=== PATIENT | male | born 1960 | race Caucasian/White ===

== ENCOUNTER 2017-01-07 13:43 | Inpatient (IN) | payer OTHER ==
--- NOTE | 2017-01-07 13:47 | EDPHY ---
HPI/HX/ROS/PE/MDM Narrative: CHIEF COMPLAINT: Shaking HISTORY OF PRESENT ILLNESS: 56 y/o male arriving with his family complaining of uncontrollable shaking onset around 6am this morning. He woke at 2:00am feeling very dizzy, as if the room was flying around. Four hours later, he began shaking. He was clammy and felt hot and cold. He did not fall or lose consciousness at any point. He endorses trouble seeing, and states things seem blurry and very bright. His toes are currently tingling. He denies headache, chest pain, abdominal pain. He is currently visiting from [place], [place] and arrived around 4:30pm yesterday afternoon. He states he had similar symptoms before when visiting [place] in September,. He denies history of alcohol withdrawal seizures or personal or family history of other seizure disorders. He endorses recent thyroid diagnosis, which sounds like hyperthyroidism, treated with an unknown medication. Family reports after starting the new medication he did well initially however has began to lose weight and developed easy bruising and mood disturbances with sudden severe anger. He visited his primary care physician last week for evaluation and had normal blood work at that time aside from slight hypothyroidism. No chest pain, shortness of breath, palpitations, vomiting, diarrhea, urinary complaints, headache, lightheadedness. Patient denies illicit drug use. He reports going out to dinner and having alcohol last night. REVIEW OF SYSTEMS: Aside from elements discussed in the HPI, a comprehensive 10-point review of systems was reviewed and is negative. PAST MEDICAL HISTORY: Hyperthyroid. Family history of cardiac disease. SOCIAL HISTORY: Visiting from [place], [place]. Family at bedside. Son attends [employer] [employer]. Nonsmoker. No marijuana use. Occasional alcohol use. VITAL SIGNS: Reviewed by me. BP 226/147. HR 137. Afebrile. GENERAL: Well-developed, well-nourished, uncontrollably violently tremorous including tongue. HEENT: Atraumatic. Eyes: No icterus, no injection. pupils normal size. Mouth: dry mucous membranes. No erythema or lesions. Neck: supple with no adenopathy. LUNGS: Clear to auscultation bilaterally, no wheezes, rhonchi or rales. CARDIAC: Tachycardic, no rubs, murmurs or gallops. ABDOMEN: Soft, nontender, nondistended, bowel sounds normal. BACK: No CVA tenderness. EXTREMITIES: No trauma. No edema. Range of motion is normal throughout. Moving all extremities. No lead pipe rigidity. No stiffness. NEURO: Alert and oriented, grossly nonfocal. SKIN: Warm and dry, no rash. Ecchymosis to lower extremities. Large ecchymosis on the right forearm. PSYCHIATRIC: Normal mentation, no agitation. Portions of this note were transcribed by a medical coding auditor. I personally performed a history, physical exam, medical decision making, and confirmed accuracy of information the transcribed note. ED Course: 12-LEAD EKG: Please see the full report in [facility]. My interpretation: Sinus tachycardia, rate 101. LVH, prolonged QT. 13:41 Assessed patient on arrival. IV was established. Patient's i-STAT demonstrates largely unremarkable electrolytes. Patient's blood pressure remains significantly elevated and patient is quite tachycardic. He received 2 mg of Ativan. On reassessment at 2:20 9.m., the patient's blood pressure has diminished to 172 /112, heart rate has come down to 105. Labs as reported that the patient's platelets are 20. Lactic acid elevated at 7.4. Of note, patient also has elevated liver function tests. Discussion held with the patient without family in the room. Patient admits to drinking quite heavily daily, and drinking during the day when he is at work. He reports his family is not aware of his heavy alcohol use. He reports developing tremors previously but not to this degree. 14:53 Spoke with hospitalist service. Dr. Awad accepts admission to stepdown. Given the patient's elevated lactic acid, low platelets, elevated liver function tests, this could be related to chronic alcohol abuse and alcohol withdrawal. However, sepsis is also in the differential. Severe Sepsis/Septic Shock Care Note The patient presents to the ED with uncontrolled tremors, tachycardic, hypertensive, and elevated lactic acid. Patient's lactic acid is 7.4. At the current time I do not believe that occult infection or sepsis is a primary cause for the patient's significant lactic acidosis. He has no white count, no documented fever, no complaints suggestive of urinary tract infection or pneumonia. 30 cc/kilos bolus of fluid was administered and repeat lactic acid was ordered. At this time antibiotics were not hung. Patient was admitted to the Hospital Medicine Service with a working diagnosis of significant alcohol withdrawal. MDM: Differential diagnoses for the patient's symptom complex was considered including but not limited to seizures, withdrawal syndrome, alcohol withdrawal, riders from sepsis, hyperthyroidism. - Data Points Laboratory Results: Laboratory Results 01/07/17 13:45 01/07/17 13:45 01/07/17 01/07/17 01/07/17 14:20 14:20 13:45 WBC RBC Hgb POC Hgb Hct POC Hct MCV MCH MCHC RDW Plt Count MPV Neut % (Auto) Lymph % (Auto) [place] % (Auto) Eos % (Auto) Baso % (Auto) Nucleat RBC Rel Count Absolute Neuts (auto) Absolute Lymphs (auto) Absolute Monos (auto) Absolute Eos (auto) Absolute Basos (auto) Absolute Nucleated RBC Immature Gran % Immature Gran # Platelet Estimate Smear Review By PT 13.6 SEC SEC (12.0-15.0) INR 1.05 (0.83-1.16) APTT 26.0 SEC SEC (23.0-38.0) VBG Lactic Acid 7.4 mmol/L H mmol/L (0.7-2.1) POC Sodium Sodium POC Potassium Potassium POC Chloride Chloride Carbon Dioxide Anion Gap POC BUN BUN Creatinine POC Creatinine Estimated GFR Glucose POC Glucose Calcium Total Bilirubin Conjugated Bilirubin Unconjugated Bilirubin AST ALT Alkaline Phosphatase Creatine Kinase Troponin I Total Protein Albumin Lipase TSH Free T4 Free T3 Urine Color Pending Urine Appearance Pending Urine pH Pending Ur Specific [place] Pending Urine Protein Pending Urine Ketones Pending Urine Blood Pending Urine Nitrate Pending Urine Bilirubin Pending Urine Urobilinogen Pending Ur Leukocyte Esterase Pending Urine RBC Pending Urine WBC Pending Ur Epithelial Cells Pending Urine Glucose Pending Urine Opiates Screen Pending Urine Barbiturates Pending Ur Phencyclidine Scrn Pending Ur Amphetamine Screen Pending U Benzodiazepines Scrn Pending Urine Cocaine Screen Pending U Marijuana (THC) Screen Pending Ethyl Alcohol 01/07/17 01/07/17 01/07/17 13:45 13:45 13:39 WBC 4.12 10^3/uL 10^3/uL (3.80-9.50) RBC 4.66 10^6/uL 10^6/uL (4.40-6.38) Hgb 15.9 g/dL g/dL (13.7-17.5) POC Hgb 17.3 gm/dL gm/dL (13.7-17.5) Hct 45.6 % % (40.0-51.0) POC Hct 51 % % (40-51) MCV 97.9 fL fL (81.5-99.8) MCH 34.1 pg pg (27.9-34.1) MCHC 34.9 g/dL g/dL (32.4-36.7) RDW 12.3 % % (11.5-15.2) Plt Count 20 10^3/uL L* 10^3/uL (150-400) MPV 11.3 fL fL (8.7-11.7) Neut % (Auto) 63.8 % % (39.3-74.2) Lymph % (Auto) 22.1 % % (15.0-45.0) [place] % (Auto) 12.4 % % (4.5-13.0) Eos % (Auto) 0.0 % L % (0.6-7.6) Baso % (Auto) 0.2 % L % (0.3-1.7) Nucleat RBC Rel Count 0.0 % % (0.0-0.2) Absolute Neuts (auto) 2.63 10^3/uL 10^3/uL (1.70-6.50) Absolute Lymphs (auto) 0.91 10^3/uL L 10^3/uL (1.00-3.00) Absolute Monos (auto) 0.51 10^3/uL 10^3/uL (0.30-0.80) Absolute Eos (auto) 0.00 10^3/uL L 10^3/uL (0.03-0.40) Absolute Basos (auto) 0.01 10^3/uL L 10^3/uL (0.02-0.10) Absolute Nucleated RBC 0.00 10^3/uL 10^3/uL (0-0.01) Immature Gran % 1.5 % H % (0.0-1.1) Immature Gran # 0.06 10^3/uL 10^3/uL (0.00-0.10) Platelet Estimate DECREASED L (ADEQ) Smear Review By Pending PT INR APTT VBG Lactic Acid POC Sodium 142 mEq/L mEq/L (134-144) Sodium 141 mEq/L mEq/L (134-144) POC Potassium 3.3 mEq/L mEq/L (3.3-5.0) Potassium 3.3 mEq/L L mEq/L (3.5-5.2) POC Chloride 101 mEq/L mEq/L (97-110) Chloride 98 mEq/L mEq/L (97-110) Carbon Dioxide 14 mEq/l L mEq/l (22-31) Anion Gap 29 mEq/L H mEq/L (8-16) POC BUN 5 mg/dL L mg/dL (7-23) BUN 7 mg/dL mg/dL (7-23) Creatinine 0.6 mg/dL L mg/dL (0.7-1.3) POC Creatinine 0.5 mg/dL L mg/dL (0.7-1.3) Estimated GFR > 60 Glucose 169 mg/dL H mg/dL (70-100) POC Glucose 164 mg/dL H mg/dL (70-100) Calcium 10.1 mg/dL mg/dL (8.5-10.4) Total Bilirubin 2.3 mg/dL H mg/dL (0.1-1.4) Conjugated Bilirubin 1.1 mg/dL H mg/dL (0.0-0.5) Unconjugated Bilirubin 1.2 mg/dL H mg/dL (0.0-1.1) AST 199 IU/L H IU/L (17-59) ALT 137 IU/L H IU/L (21-72) Alkaline Phosphatase 120 IU/L IU/L (38-126) Creatine Kinase 185 IU/L IU/L (0-224) Troponin I < 0.012 ng/mL ng/mL (0.000-0.034) Total Protein 10.4 g/dL H g/dL (6.3-8.2) Albumin 5.3 g/dL H g/dL (3.5-5.0) Lipase 353 IU/L H IU/L (23-300) TSH 2.080 uIU/mL uIU/mL (0.465-4.680) Free T4 0.96 ng/dL ng/dL (0.59-2.19) Free T3 4.19 pg/mL pg/mL (2.77-5.27) Urine Color Urine Appearance Urine pH Ur Specific [place] Urine Protein Urine Ketones Urine Blood Urine Nitrate Urine Bilirubin Urine Urobilinogen Ur Leukocyte Esterase Urine RBC Urine WBC Ur Epithelial Cells Urine Glucose Urine Opiates Screen Urine Barbiturates Ur Phencyclidine Scrn Ur Amphetamine Screen U Benzodiazepines Scrn Urine Cocaine Screen U Marijuana (THC) Screen Ethyl Alcohol 13 mg/dL H mg/dL (0-10) Medications Given: Discontinued Medications Chlordiazepoxide HCl (Librium) 25 mg PO EDNOW ONE Stop: 01/07/17 14:58 Last Admin: 01/07/17 15:15 Dose: 25 mg Sodium Chloride (Ns) 1,000 mls @ 0 mls/hr IV ONCE ONE; Wide Open PRN Reason: Protocol Stop: 01/07/17 14:00 Last Admin: 01/07/17 14:00 Dose: 1,000 mls Sodium Chloride (Ns) 2,200 mls @ 4,400 mls/hr 30 ml/kg infuse over 30 min ( 2200 ml) IV EDNOW ONE PRN Reason: Protocol Stop: 01/07/17 15:26 Last Admin: 01/07/17 15:15 Dose: 2,200 mls Lorazepam (Ativan Injection) 2 mg IVP EDNOW ONE Stop: 01/07/17 14:00 Last Admin: 01/07/17 14:00 Dose: 2 mg Point of Care Test Results: 01/07/17 13:39 POC Sodium 142 POC Potassium 3.3 POC Chloride 101 POC BUN 5 L POC Creatinine 0.5 L POC Glucose 164 H General Initial Vital Signs: Initial Vital Signs Temperature (C) 36.8 C 01/07/17 13:43 Heart Rate 145 H 01/07/17 13:43 Respiratory Rate 28 H 01/07/17 13:43 Blood Pressure 226/147 H 01/07/17 13:43 O2 Sat (%) 97 01/07/17 13:43 O2 Delivery Mode Room Air Allergies/Adverse Reactions: meperidine [From Demerol] Allergy (Verified 01/07/17 13:53) Home Medications: Medication Instructions Recorded Amlodipine Besylate/Benazepril 1 each PO DAILY 01/07/17 [Amlodipine-Benazepril 5-10 mg] Levothyroxine [Synthroid 25 mcg 25 mcg PO DAILY06 01/07/17 (*)] Departure - Departure Disposition: [facility] Acute Clinical Impression: Lactic acidosis, Tremors of nervous system Withdrawal syndrome Qualifiers: Substance type: other psychoactive substance Qualified Code(s): F19.939 - Other psychoactive substance use, unspecified with withdrawal, unspecified Condition: Fair Report Scribed for: Rula Sanders Report Scribed by: Yue Sauceda Date of Report: 01/07/17 Time of Report: 13:53
[2017-01-07] MEDS ORDERED: LORazepam 2 MG/ML INJ ONE ×2 (13:48→16:40)
[2017-01-07] MEDS ORDERED: LORazepam 2 MG/ML INJ IVP ONE (13:59)
[2017-01-07] MEDS ORDERED: NS 1,000 ML IV ONE (13:59)
[2017-01-07 14:11] LABS: % IMMATURE GRANULYOCYTES 1.5 % (0.0-1.1); ABSOLUTE IMMATURE GRANULOCYTES 0.06 10^3/uL (0.00-0.10); ADD DIFF? NO; ADD MORPH? NO; ADD SCAN? NO; ATYPICAL LYMPHOCYTE FLAG 0 (0-99); FRAGMENT RBC FLAG 0 (0-99); HEMATOCRIT 45.6 % (40.0-51.0); HEMOGLOBIN 15.9 g/dL (13.7-17.5); LEFT SHIFT FLG 10 (0-99); LIPEMIA HEMOLYSIS FLAG 90 (0-99); MEAN CELL HEMOGLOBIN 34.1 pg (27.9-34.1); MEAN CELL HEMOGLOBIN CONCENTR. 34.9 g/dL (32.4-36.7); MEAN CELL VOLUME 97.9 fL (81.5-99.8); MEAN PLATELET VOLUME 11.3 fL (8.7-11.7); PLATELET CLUMPS FLAG 0 (0-99); RED BLOOD CELL COUNT 4.66 10^6/uL (4.40-6.38); RED CELL DISTRIBUTION WIDTH 12.3 % (11.5-15.2)
[2017-01-07 14:16] LABS: ALANINE AMINOTRANSFERASE 137 IU/L (21-72); ALBUMIN 5.3 g/dL (3.5-5.0); ALKALINE PHOSPHATASE 120 IU/L (38-126); ANION GAP 29 mEq/L (8-16); ASPARTATE AMINOTRANSFERASE 199 IU/L (17-59); BILIRUBIN,TOTAL 2.3 mg/dL (0.1-1.4); BILIRUBIN-CONJUGATED 1.1 mg/dL (0.0-0.5); BILIRUBIN-UNCONJUGATED 1.2 mg/dL (0.0-1.1); CALCIUM 10.1 mg/dL (8.5-10.4); CARBON DIOXIDE 14 mEq/l (22-31); CHLORIDE 98 mEq/L (97-110); CREATININE 0.6 mg/dL (0.7-1.3); GLOMERULAR FILTRATION RATE > 60; GLUCOSE 169 mg/dL (70-100); PLATELET COUNT 20 10^3/uL (150-400); POTASSIUM 3.3 mEq/L (3.5-5.2); SODIUM 141 mEq/L (134-144); TOTAL PROTEIN 10.4 g/dL (6.3-8.2)
--- NOTE | 2017-01-07 14:25 | CPEKG ---
Heart Rate: 101 RR Interval: 594 P-R Interval: 184 QRSD Interval: 102 QT Interval: 388 QTC Interval: 503 P [place]: 47 QRS [place]: 41 T Wave [place]: 15 EKG Severity - ABNORMAL ECG - EKG Impression: SINUS TACHYCARDIA EKG Impression: LEFT VENTRICULAR HYPERTROPHY EKG Impression: PROLONGED QT INTERVAL Electronically Signed By: Rula Sanders 07-Jan-2017 15:42:58
[2017-01-07 14:32] LABS: TROPONIN I < 0.012 ng/mL (0.000-0.034)
[2017-01-07] MEDS ORDERED: chlordiazePOXIDE 25 MG CAP PO ONE (14:57)
[2017-01-07] MEDS ORDERED: NS 2,200 ML IV ONE (14:57)
[2017-01-07 15:06] LABS: ETHANOL SERUM 13 mg/dL (0-10)
[2017-01-07 15:08] LABS: INR 1.05 (0.83-1.16); PROTIME(PATIENT) 13.6 SEC (12.0-15.0)
[2017-01-07 15:09] LABS: PLATELET ESTIMATE DECREASED (ADEQ)
[2017-01-07] MEDS ORDERED: ONDANSETRON 4 MG/2 ML VIAL ONE (16:15)
[2017-01-07] MEDS ORDERED: ONDANSETRON 4 MG/2 ML VIAL IVP ONE (16:18)
[2017-01-07 16:36] LABS: COLOR YELLOW; LEUKOCYTE ESTERASE,URINE NEGATIVE (NEGATIVE); NITRITE,URINE NEGATIVE (NEGATIVE)
[2017-01-07 16:40] LABS: MUCUS TRACE /lpf (NONE-1+)
[2017-01-07] MEDS ORDERED: PROTOCOL POTASSIUM 1 DOSE MISC PRN (16:54)
[2017-01-07] MEDS ORDERED: PROMETHAZINE HCL 25 MG/ML INJ IVP PRN (16:55)
[2017-01-07] MEDS ORDERED: HYDROmorphONE/DILAUDID 1 MG/ML INJ IVP PRN (16:55)
[2017-01-07] MEDS ORDERED: ONDANSETRON 4 MG/2 ML VIAL IVP PRN (16:55)
[2017-01-07] MEDS ORDERED: ACETAMINOPHEN 500 MG TAB PO PRN (16:55)
[2017-01-07] MEDS: LORazepam 2 MG/ML INJ IVP PRN ×3 (17:32→22:05)
--- NOTE | 2017-01-07 17:46 | GHP ---
[f rep st] HISTORY AND PHYSICAL DATE OF ADMISSION: 01/07/2017 CHIEF COMPLAINT: Tremor. HISTORY: The patient is a 56-year-old male visiting [place] from [place], [place], for Parents' Weekend as his son is attending . He flew here with his family yesterday and then at 2 a.m. this morning woke up with severe dizziness and nausea. For the next couple hours this progressed to a severe trem or with profuse nausea and vomiting. It has now been revealed and he has admitted to surreptitious a lcohol use, drinking heavily 1 pint of whiskey per day, starting at noon at work and sneaking alcohol at home, and his family is completely unaware. Since he is currently traveling with his family, he has not been drinking his usual quantities, and per his , had 4 alcoholic beverages yesterday. He has had a 30-pound unintentional weight loss and noticed easy bruising. He has had increased nose bleeds. He has been dizzy for the last 6 months. He saw his primary care doctor very recently at [facility], and the patient tells me his primary care doctor told him his liver tests were abnormal and his p latelets were low, and his primary care doctor is aware of his alcoholism. He went home, however, an d told his that the labs were all normal. He had a similar episode when they went to a wedding in [place] at the end of September, however, was not as severe and he just was seen in urgent care and relea sed. They were told platelets were low at that time as well. Over the last 2 weeks, he has had a miles dden mood change and he is angry all the time according to his . PAST MEDICAL HISTORY: 1. Hypertension. 2. Hypothyroidism. MEDICATIONS: Please see computer record for full detailed list. ALLERGIES: Meperidine. SOCIAL HISTORY: He does not smoke cigarettes but he dips. Per his 's history, he only drinks a couple drinks on Monday and Monday night, but when his family was not present, the patient admitted to daily drinking of a pint of whiskey starting at noon. REVIEW OF SYSTEMS: Complete review of systems obtained. Review of systems is negative regarding con stitutional, HEENT, GI, pulmonary, cardiovascular, , hematology, skin, muscular, endocrine, psychia tric, except for positives and negatives as noted in the HPI. FAMILY HISTORY: Reviewed; noncontributory to presenting complaint. PHYSICAL EXAMINATION: GENERAL: Well-developed, well-nourished male, in no acute distress. VITAL SI GNS: Temperature is 36.8, pulse 145, respirations 28, blood pressure 226/147, saturating 97% on room air. HEENT: Eyes: Normal conjunctivae. Pupils equal and reactive to light. ENT: Normal ears an d nose. Hearing intact. Normal teeth. Oropharynx moist. NECK: Trachea midline. No thyromegaly. CHEST: Normal respiratory effort. LUNGS: Clear to auscultation bilaterally. CARDIOVASCULAR: Tac hycardic. No murmur. No lower extremity edema. ABDOMEN: Soft, nontender. Possible hepatosplenome arti. SKIN: Warm, dry, intact, without rash. MUSCULOSKELETAL: No cyanosis or clubbing. Strength 5/5 in upper and lower extremities. NEUROLOGIC: Cranial nerves intact. Normal sensation to light t ouch. He does have a significant tremor. PSYCHIATRIC: He is agitated but alert and oriented, able to give a history. Looks very uncomfortable. Normal judgment and insight. Normal memory. LABORATORY DATA: White count 4.12, hematocrit 45.6, platelets 20. Sodium 141, potassium 3.3, chlori de 98, bicarb 14, anion gap 29, BUN 7, creatinine 0.6, glucose 169. TSH is 2.0. Total bilirubin 2.3 , AST 199, ALT 137, total protein 10.4. Troponins negative. Lactate initially 7.4, has come down al ready to 2.2 after hydration in the emergency room. EKG reviewed by me and my personal interpretation: Sinus tachycardia with LVH. This case was discus sed with Dr. Rula Sanders. She was able to speak with the patient initially without family in the ro om and get this history regarding his surreptitious alcohol use. ASSESSMENT/PLAN: 1. Severe alcohol withdrawal. He has surreptitious alcohol use that his family is not aware of with an acute reduction in use due to recent travel with them. He is now being admitted to ICU. We will place him on benzodiazepines and he may need a Precedex drip. We will administer IV thiamine. 2. Increased liver function tests. This is also likely secondary to his alcohol use. We will check an abdominal ultrasound. 3. Thrombocytopenia, also due to alcohol. Could receive a platelet transfusion if there are any sig ns of bleeding. 4. Headache and dizziness. Given his very low platelets, we will check a head CT to rule out bleed. 5. Anion gap acidosis. Anion gap 29 on presentation, probably due to his extreme lactate elevation; that has improved with IV fluids. I do not think he is septic; I think this is due to a combination of hypovolemia and liver dysfunction from his alcoholism. 6. Hypertension. He does have baseline essential hypertension. It is probably worsened by his acut e withdrawal. We will continue his home oral medications, which are amlodipine and benazepril, and u se p.r.n. IV hydralazine as needed. CODE STATUS: Full. ADMISSION STATUS: Will admit to inpatient as he is critically ill on presentation. CRITICAL CARE TIME SPENT: One hour. DEEP VENOUS THROMBOSIS PROPHYLAXIS: He is not a candidate for Lovenox due to his thrombocytopenia. /[id number]/MODL
[2017-01-07 17:47] LABS: POTASSIUM 3.5 mEq/L (3.5-5.2)
--- NOTE | 2017-01-07 18:26 | PDMN ---
Medical Necessity Medical necessity: C/M review: Pt. meets INPT criteria per [facility] Substance related disorders; Acute and persistent severe alcohol withdrawal, significant tremor, sinus tachycardia, heart rate 145-105, agitation, elevated liver function tests, total bilirubin 2.3, AST 199, ALT 137, lipase 353, thrombocytopenia. platelet count 20, ETOH level 13, anion gap acidosis, VBG lactic acid 7.4, 2.2, requiring IV Thiamine, ongoing IV fluids, IV Ativan, IV Precedex infusion if needed, CIWA protocol, acute inpt ST in SDU, comorbid surreptitious alcohol use that patient's family is not aware of with acute reduction in use, hypertension, hypothyroidism; anticipate > 2 MN LOS for ongoing medical necessity for eval and [place] of above.
[2017-01-07] MEDS ORDERED: POTASSIUM CL 10 MEQ TAB PO ONE (19:14)
[2017-01-07] MEDS: chlordiazePOXIDE 25 MG CAP PO PRN (19:54)
[2017-01-07] MEDS: hydrALAZINE 20 MG/ML VIAL IVP PRN (20:03)
[2017-01-08] MEDS: LABETALOL HCL 5 MG/ML 20 ML MDV IVP PRN ×2 (00:39→06:01)
[2017-01-08] MEDS: LORazepam 2 MG/ML INJ IVP PRN ×10 (01:24→23:11)
[2017-01-08] MEDS: chlordiazePOXIDE 25 MG CAP PO PRN ×5 (01:24→21:43)
[2017-01-08] MEDS: NS W/ 20 KCl/L 1,000 ML IV SCH ×2 (01:24→10:12)
[2017-01-08] MEDS: LEVOTHYROXINE 25 MCG TAB PO SCH (05:58)
[2017-01-08 06:06] LABS: % IMMATURE GRANULYOCYTES 0.4 % (0.0-1.1); ABSOLUTE IMMATURE GRANULOCYTES 0.02 10^3/uL (0.00-0.10); ADD DIFF? NO; ADD MORPH? NO; ADD SCAN? NO; ATYPICAL LYMPHOCYTE FLAG 10 (0-99); FRAGMENT RBC FLAG 0 (0-99); HEMATOCRIT 38.7 % (40.0-51.0); HEMOGLOBIN 13.9 g/dL (13.7-17.5); LEFT SHIFT FLG 10 (0-99); LIPEMIA HEMOLYSIS FLAG 90 (0-99); MEAN CELL HEMOGLOBIN 34.5 pg (27.9-34.1); MEAN CELL HEMOGLOBIN CONCENTR. 35.9 g/dL (32.4-36.7); MEAN PLATELET VOLUME 10.5 fL (8.7-11.7); PLATELET CLUMPS FLAG 0 (0-99); RED BLOOD CELL COUNT 4.03 10^6/uL (4.40-6.38); RED CELL DISTRIBUTION WIDTH 12.4 % (11.5-15.2)
[2017-01-08 06:13] LABS: INR 1.08 (0.83-1.16); PROTIME(PATIENT) 13.9 SEC (12.0-15.0)
[2017-01-08 06:15] LABS: PLATELET COUNT 14 10^3/uL (150-400)
[2017-01-08 06:20] LABS: ALANINE AMINOTRANSFERASE 97 IU/L (21-72); ALBUMIN 4.1 g/dL (3.5-5.0); ALKALINE PHOSPHATASE 80 IU/L (38-126); ANION GAP 11 mEq/L (8-16); ASPARTATE AMINOTRANSFERASE 122 IU/L (17-59); BILIRUBIN,TOTAL 2.4 mg/dL (0.1-1.4); BILIRUBIN-CONJUGATED 1.2 mg/dL (0.0-0.5); BILIRUBIN-UNCONJUGATED 1.2 mg/dL (0.0-1.1); CARBON DIOXIDE 23 mEq/l (22-31); CHLORIDE 100 mEq/L (97-110); CREATININE 0.6 mg/dL (0.7-1.3); GLOMERULAR FILTRATION RATE > 60; GLUCOSE 92 mg/dL (70-100); MAGNESIUM 1.1 mg/dL (1.6-2.3); POTASSIUM 3.7 mEq/L (3.5-5.2); SODIUM 134 mEq/L (134-144); TOTAL PROTEIN 8.1 g/dL (6.3-8.2)
[2017-01-08 06:39] LABS: PLATELET ESTIMATE DECREASED (ADEQ)
[2017-01-08] MEDS ORDERED: POTASSIUM CL 10 MEQ TAB PO ONE (07:29)
[2017-01-08] MEDS: AMLODIPINE BESYLATE 5/BENAZEPRIL 10MG 1 EACH CAP PO SCH (07:38)
[2017-01-08] MEDS ORDERED: MAGNESIUM SULF 2 GM/WATER 50 ML IV ONE (09:54)
--- NOTE | 2017-01-08 10:36 | HOSPPROG ---
Hospitalist Progress Note Assessment/Plan: 56 yo m w alcoholism, thrombocytopenia admitted w severe alcohol withdrawal withdrawal: severe, w tremors tachycardia and confusion continue CIWA suspect it will get worse before better thrombocytopenia: presumably 2/2 to alcohol, although cannot rule out ITP got platelets this AM follow BID no petechiae contraindication to LMWH no active bleeding htn: amlodipine keep sbp <180 w low plts prn labetalol proph: scd's hypomagnesemia: replete Subjective: case d/w dr ramirez. confused Objective: Vital Signs Temp Pulse Resp BP Pulse Ox 36.9 C 105 H 16 145/97 H 95 01/08/17 07:10 01/08/17 07:10 01/08/17 07:10 01/08/17 07:10 01/08/17 07:10 Laboratory Results 01/08/17 05:45 01/08/17 05:45 01/07/17 01/08/17 01/09/17 05:59 05:59 05:59 Intake Total 1919 Output Total 1999 Balance -81 PT 13.9 SEC (12.0-15.0) 01/08/17 05:45 INR 1.08 (0.83-1.16) 01/08/17 05:45 - Physical Exam Constitutional: no apparent distress, appears nourished Eyes: PERRL, anicteric sclera Ears, Nose, Mouth, Throat: moist mucous membranes, hearing normal Cardiovascular: regular rate and rhythym, no murmur, rub, or gallop, tachycardia Respiratory: no respiratory distress, no rales or rhonchi Gastrointestinal: normoactive bowel sounds, soft, non-tender abdomen Genitourinary: No mccall in urethra Skin: warm, normal color Musculoskeletal: full muscle strength, no muscle tenderness Neurologic: No AAOx3 Psychiatric: interacting appropriately ICD10 Worksheet Patient Problems: Problems Problem Status Onset Lactic acidosis Acute Tremors of nervous system Acute Withdrawal syndrome Acute
--- NOTE | 2017-01-08 13:14 | GCON ---
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 HISTORY OF PRESENT ILLNESS: The patient is a 56-year-old white male, with past medical history of hy pertension, hypothyroidism. He is visiting his son for parents weekend. He awakened feeling severe dizziness and nausea, this progressed to severe tremor, and nausea and vomiting. He was brought to [facility] emergency room, at that time, it was discovered that he is an alcoholic, drinking approximately 1 pint of whiskey per day, and his family was unaware. Currently, patient is somewhat sedated, resting comfortably. All history is gleaned from the medical record. PAST MEDICAL HISTORY: Hypertension, hypothyroidism. ALLERGIES: Meperidine. SOCIAL HISTORY: No history of tobacco use, but apparently excessive alcohol use, including daily dri nking of approximately a pint of whiskey, beginning at noon. FAMILY HISTORY: Noncontributory. PHYSICAL EXAM: VITAL SIGNS: Blood pressure is 145/97, pulse 105, respirations 16, temperature 36.9, oxygen saturation 95% on room air. GENERAL: He is a well-developed, well-nourished, 56-year-old, w shantel male, who is resting comfortably, in no acute distress. HEENT: Eyes are PERRLA, EOMI. Throat shows no erythema or tonsillar hypertrophy. NECK: Supple. There is no cervical adenopathy. HEART: Regular rate and rhythm without murmurs, rubs, gallops. LUNGS: Clear to auscultation. No wheeze or rhonchi. ABDOMEN: Soft, nontender. Bowel sounds present in all 4 quadrants. EXTREMITIES: Show mild tremor. LABORATORIES: White count 4.6, hemoglobin 13, hematocrit 38, platelet count 14. INR 1.08. Sodium 134, potassium 3.7, chloride 100, CO2 is 23, BUN is 7, creatinine 0.6, glucose is 92. AST is mildly elevated 122, ALT is elevated at 97. IMPRESSION: 1. Alcoholism. 2. Alcohol withdrawals. 3. Thrombocytopenia, likely secondary to alcohol. 4. Hypothyroidism. 5. Hypertension. RECOMMENDATIONS: 1. Agree with [facility] protocol. 2. Deep vein thrombosis and pulmonary embolus prophylaxis. 3. Stress ulcer prophylaxis. 4. Continue the majority of his home medications. /[id number]/MODL
[2017-01-08 16:22] LABS: PLATELET COUNT 44 10^3/uL (150-400)
[2017-01-08 16:41] LABS: PLATELET ESTIMATE DECREASED (ADEQ)
[2017-01-09] MEDS: DEXMEDETOMIDINE HCL 400 MCG in NS 100 ML IV SCH ×5 (00:08→21:19)
[2017-01-09] MEDS: THIAMINE HCL 500 MG in NS 100 ML IV SCH ×2 (02:17→07:51)
[2017-01-09] MEDS: LORazepam 2 MG/ML INJ IVP SCH ×4 (03:20→20:27)
[2017-01-09] MEDS: NS W/ 20 KCl/L 1,000 ML IV SCH ×3 (03:21→21:19)
[2017-01-09] MEDS: LEVOTHYROXINE 25 MCG TAB PO SCH (05:01)
[2017-01-09 05:18] LABS: % IMMATURE GRANULYOCYTES 0.3 % (0.0-1.1); ABSOLUTE IMMATURE GRANULOCYTES 0.01 10^3/uL (0.00-0.10); ADD DIFF? NO; ADD MORPH? NO; ADD SCAN? NO; ATYPICAL LYMPHOCYTE FLAG 30 (0-99); FRAGMENT RBC FLAG 0 (0-99); HEMATOCRIT 38.6 % (40.0-51.0); HEMOGLOBIN 13.6 g/dL (13.7-17.5); LEFT SHIFT FLG 0 (0-99); LIPEMIA HEMOLYSIS FLAG 90 (0-99); MEAN CELL HEMOGLOBIN 34.5 pg (27.9-34.1); MEAN CELL HEMOGLOBIN CONCENTR. 35.2 g/dL (32.4-36.7); MEAN PLATELET VOLUME 11.2 fL (8.7-11.7); PLATELET CLUMPS FLAG 0 (0-99); RED BLOOD CELL COUNT 3.94 10^6/uL (4.40-6.38); RED CELL DISTRIBUTION WIDTH 12.4 % (11.5-15.2)
[2017-01-09 05:22] LABS: PLATELET COUNT 33 10^3/uL (150-400)
[2017-01-09 05:43] LABS: ANION GAP 10 mEq/L (8-16); CALCIUM 9.2 mg/dL (8.5-10.4); CARBON DIOXIDE 20 mEq/l (22-31); CHLORIDE 107 mEq/L (97-110); CREATININE 0.7 mg/dL (0.7-1.3); GLOMERULAR FILTRATION RATE > 60; GLUCOSE 89 mg/dL (70-100); MAGNESIUM 1.8 mg/dL (1.6-2.3); SODIUM 137 mEq/L (134-144)
[2017-01-09 06:11] LABS: PLATELET ESTIMATE DECREASED (ADEQ)
[2017-01-09] MEDS: AMLODIPINE BESYLATE 5/BENAZEPRIL 10MG 1 EACH CAP PO SCH ×2 (07:51→08:04)
--- NOTE | 2017-01-09 09:29 | HOSPPROG ---
Hospitalist Progress Note Assessment/Plan: 56 yo m w alcoholism, thrombocytopenia admitted w severe alcohol withdrawal withdrawal: severe, w tremors tachycardia and confusion continue CIWA on precedex and scheduled ativan hope to wean precedex today thrombocytopenia: presumably 2/2 to alcohol, although cannot rule out ITP good bump w transfusion, which aagrues against ITP follow htn: amlodipine keep sbp <180 w low plts prn labetalol proph: scd's hypomagnesemia: replete Subjective: modestly agitated. started on precedex this AM. case d/w dr maher Objective: Vital Signs Temp Pulse Resp BP Pulse Ox 36.6 C 95 16 138/95 H 97 01/09/17 08:00 01/09/17 08:00 01/09/17 08:00 01/09/17 08:00 01/09/17 08:00 Laboratory Results 01/09/17 04:55 01/09/17 04:55 01/08/17 01/09/17 01/10/17 05:59 05:59 05:59 Intake Total 1919 3547.7 Output Total 1999 1250 Balance -81 2297.7 PT 13.9 SEC (12.0-15.0) 01/08/17 05:45 INR 1.08 (0.83-1.16) 01/08/17 05:45 - Physical Exam Constitutional: other (tremulous) Eyes: PERRL, anicteric sclera Ears, Nose, Mouth, Throat: moist mucous membranes, hearing normal Cardiovascular: no murmur, rub, or gallop, tachycardia, No systolic murmur Respiratory: no respiratory distress, no rales or rhonchi Gastrointestinal: normoactive bowel sounds, soft, non-tender abdomen Genitourinary: No mccall in urethra Skin: warm, other (no petechiae) Musculoskeletal: full muscle strength, no muscle tenderness Neurologic: AAOx3 ICD10 Worksheet Patient Problems: Problems Problem Status Onset Lactic acidosis Acute Tremors of nervous system Acute Withdrawal syndrome Acute
--- NOTE | 2017-01-09 11:15 | ASMTCMCOM ---
CM Note CM Note Notes: 56 year old male from [place] with his visiting son ([employer] student). Admitted for ETOH W/D, Thrombocytopenia, tremors, HTN, N/V, [place]. Has a HX of HTN, Hypothyroid, chews tobacco, has had a recent 30# wt loss. Patient in W/D. CM to follow. Date Signed: 01/09/2017 11:14 AM Electronically Signed By:Angeles Alicia LCSW
[2017-01-09] MEDS: PANTOPRAZOLE SODIUM 40 MG TAB PO SCH (12:14)
[2017-01-09] MEDS: hydrALAZINE 20 MG/ML VIAL IVP PRN (20:41)
[2017-01-09 20:44] LABS: POTASSIUM 3.8 mEq/L (3.5-5.2)
[2017-01-09] MEDS: POTASSIUM Cl (KCl) 100 ML IV SCH ×2 (21:22→23:27)
[2017-01-09] MEDS: LORazepam 2 MG/ML INJ IVP PRN ×2 (22:18→23:30)
[2017-01-10] MEDS: LORazepam 2 MG/ML INJ IVP PRN ×5 (00:15→07:27)
[2017-01-10] MEDS: DEXMEDETOMIDINE HCL 400 MCG in NS 100 ML IV SCH ×7 (00:44→23:31)
[2017-01-10] MEDS: LORazepam 2 MG/ML INJ IVP SCH ×4 (02:27→20:04)
[2017-01-10 05:45] LABS: % IMMATURE GRANULYOCYTES 0.5 % (0.0-1.1); ABSOLUTE IMMATURE GRANULOCYTES 0.02 10^3/uL (0.00-0.10); ADD DIFF? NO; ADD MORPH? NO; ADD SCAN? NO; ATYPICAL LYMPHOCYTE FLAG 0 (0-99); FRAGMENT RBC FLAG 0 (0-99); HEMATOCRIT 39.3 % (40.0-51.0); LEFT SHIFT FLG 0 (0-99); LIPEMIA HEMOLYSIS FLAG 90 (0-99); MEAN CELL HEMOGLOBIN 34.7 pg (27.9-34.1); MEAN CELL HEMOGLOBIN CONCENTR. 35.6 g/dL (32.4-36.7); MEAN CELL VOLUME 97.5 fL (81.5-99.8); MEAN PLATELET VOLUME 11.4 fL (8.7-11.7); PLATELET CLUMPS FLAG 10 (0-99); RED BLOOD CELL COUNT 4.03 10^6/uL (4.40-6.38); RED CELL DISTRIBUTION WIDTH 11.9 % (11.5-15.2)
[2017-01-10 05:46] LABS: PLATELET COUNT 37 10^3/uL (150-400)
[2017-01-10 06:13] LABS: ANION GAP 12 mEq/L (8-16); CARBON DIOXIDE 19 mEq/l (22-31); CHLORIDE 106 mEq/L (97-110); CREATININE 0.6 mg/dL (0.7-1.3); GLOMERULAR FILTRATION RATE > 60; GLUCOSE 104 mg/dL (70-100); MAGNESIUM 1.4 mg/dL (1.6-2.3); POTASSIUM 3.8 mEq/L (3.5-5.2); SODIUM 137 mEq/L (134-144)
[2017-01-10 06:37] LABS: PLATELET ESTIMATE DECREASED (ADEQ)
[2017-01-10] MEDS: PANTOPRAZOLE SODIUM 40 MG TAB PO SCH (07:26)
[2017-01-10] MEDS: AMLODIPINE BESYLATE 5/BENAZEPRIL 10MG 1 EACH CAP PO SCH (07:26)
[2017-01-10] MEDS: THIAMINE HCL 100 MG TAB PO SCH (07:26)
[2017-01-10] MEDS: LEVOTHYROXINE 25 MCG TAB PO SCH (07:27)
[2017-01-10] MEDS: LABETALOL HCL 5 MG/ML 20 ML MDV IVP PRN (08:29)
[2017-01-10] MEDS ORDERED: POTASSIUM CL 10 MEQ TAB PO ONE (09:41)
[2017-01-10] MEDS ORDERED: PROTOCOL K PHOSPHATE 1 DOSE IV PRN (10:13)
[2017-01-10] MEDS ORDERED: PROTOCOL MAGNESIUM 1 DOSE IV PRN (10:13)
[2017-01-10] MEDS ORDERED: PROTOCOL POTASSIUM 1 DOSE MISC PRN (10:13)
[2017-01-10] MEDS ORDERED: PROTOCOL CALCIUM 1 DOSE IV PRN (10:13)
[2017-01-10] MEDS ORDERED: MAGNESIUM SULF 2 GM/WATER 50 ML IV ONE (10:25)
[2017-01-10] MEDS: HALOPERIDOL LACT 5 MG/ML INJ IVP PRN ×2 (10:36→15:36)
--- NOTE | 2017-01-10 11:19 | HOSPPROG ---
Hospitalist Progress Note Assessment/Plan: 56 yo m w alcoholism, thrombocytopenia admitted w severe alcohol withdrawal withdrawal: severe, w tremors tachycardia and confusion continue CIWA on precedex and scheduled ativan probably a bit worse today than yesterday thrombocytopenia: presumably 2/2 to alcohol, although cannot rule out ITP good bump w transfusion, which argues against ITP follow daily htn: amlodipine keep sbp <180 w low plts prn labetalol proph: scd's hypomagnesemia: replete Subjective: case d/w dr maher. agitated today requiring frequent benzodiazepines Objective: Vital Signs Temp Pulse Resp BP Pulse Ox 36.5 C 106 H 20 149/97 H 97 01/10/17 08:00 01/10/17 10:00 01/10/17 10:00 01/10/17 10:00 01/10/17 10:00 Laboratory Results 01/10/17 05:25 01/10/17 05:25 01/09/17 01/10/17 01/11/17 05:59 05:59 05:59 Intake Total 3547.7 4221 Output Total 1250 4400 Balance 2297.7 -179 PT 13.9 SEC (12.0-15.0) 01/08/17 05:45 INR 1.08 (0.83-1.16) 01/08/17 05:45 - Physical Exam Constitutional: no apparent distress, other (alter, confused) Eyes: PERRL, anicteric sclera Ears, Nose, Mouth, Throat: moist mucous membranes, hearing normal Cardiovascular: regular rate and rhythym, no murmur, rub, or gallop Respiratory: no respiratory distress, no rales or rhonchi Gastrointestinal: normoactive bowel sounds, soft, non-tender abdomen Genitourinary: no bladder fullness, No mccall in urethra Skin: warm, normal color, other (no petechiae) Musculoskeletal: full muscle strength Neurologic: No AAOx3 Psychiatric: No interacting appropriately ICD10 Worksheet Patient Problems: Problems Problem Status Onset Lactic acidosis Acute Tremors of nervous system Acute Withdrawal syndrome Acute
[2017-01-10] MEDS: chlordiazePOXIDE 25 MG CAP PO PRN ×2 (11:29→14:42)
[2017-01-10] MEDS: NS W/ 20 KCl/L 1,000 ML IV SCH (12:53)
--- NOTE | 2017-01-10 13:55 | ASMTCMCOM ---
CM Note CM Note Notes: spoke with patient's regarding possible treatment needs for patient. Encouraged her to check their insurance benefits and then reseach the [place] area for either in-pt programs, intensive out-pt programs, AA meetings, etc. Patient will have to make the decision for treatment. Date Signed: 01/10/2017 01:54 PM Electronically Signed By:Angeles Alicia LCSW
--- NOTE | 2017-01-10 15:06 | PDINTPN ---
[employer] Progress Note Assessment/Plan: Assessment: EtOH withdrawal: CIWA 21 this morning, now better with Haldol and Librium. Thrombocytopenia: Still quite low but improved. Hypertension: Still with episodic HTN. Plan: Haldol added this morning for hallucinations. Will add Clonidine for HTN/ agitation. Melatonin hs. COntinue PO/IV benzos. 01/10/17 15:10 Subjective: Hallucinating/agitated this morning, now disoriented but more calm. Objective: Vital Signs Temp Pulse Resp BP Pulse Ox 36.5 C 93 18 146/95 H 96 01/10/17 11:50 01/10/17 14:00 01/10/17 14:00 01/10/17 14:00 01/10/17 14:00 Laboratory Results 01/10/17 05:25 01/10/17 05:25 01/09/17 01/10/17 01/11/17 05:59 05:59 05:59 Intake Total 3547.7 4221 Output Total 1250 4400 Balance 2297.7 -179 PT 13.9 SEC (12.0-15.0) 01/08/17 05:45 INR 1.08 (0.83-1.16) 01/08/17 05:45 Physical Exam - Physical Exam General Appearance: alert, mild distress EENT: normal ENT inspection Neck: normal inspection Respiratory: normal breath sounds, No respiratory distress Cardiac/Chest: regular rate, rhythm, No edema Abdomen: normal bowel sounds, non-tender Skin: normal color, warm/dry Extremities: normal inspection Neuro/Psych: alert, other (tremulous), No oriented x 3 ICD10 Worksheet Patient Problems: Problems Problem Status Onset Lactic acidosis Acute Tremors of nervous system Acute Withdrawal syndrome Acute
[2017-01-10] MEDS: hydrALAZINE 20 MG/ML VIAL IVP PRN (17:33)
[2017-01-10] MEDS: MELATONIN 3 MG TAB PO SCH (20:04)
[2017-01-11] MEDS: LORazepam 2 MG/ML INJ IVP PRN ×4 (02:26→21:13)
[2017-01-11] MEDS: LORazepam 2 MG/ML INJ IVP SCH ×2 (03:04→08:12)
[2017-01-11] MEDS: DEXMEDETOMIDINE HCL 400 MCG in NS 100 ML IV SCH ×2 (03:52→07:31)
[2017-01-11 05:23] LABS: IONIZED CALCIUM 1.16 MMOL/L (1.12-1.30)
[2017-01-11 05:25] LABS: HEMATOCRIT 40.1 % (40.0-51.0); HEMOGLOBIN 13.9 g/dL (13.7-17.5); LIPEMIA HEMOLYSIS FLAG 90 (0-99); MEAN CELL HEMOGLOBIN 34.4 pg (27.9-34.1); MEAN CELL HEMOGLOBIN CONCENTR. 34.7 g/dL (32.4-36.7); MEAN CELL VOLUME 99.3 fL (81.5-99.8); PLATELET CLUMPS FLAG 50 (0-99); RED BLOOD CELL COUNT 4.04 10^6/uL (4.40-6.38); RED CELL DISTRIBUTION WIDTH 12.1 % (11.5-15.2)
[2017-01-11 05:34] LABS: PLATELET COUNT 46 10^3/uL (150-400)
[2017-01-11] MEDS: LEVOTHYROXINE 25 MCG TAB PO SCH (05:37)
[2017-01-11 05:45] LABS: ALANINE AMINOTRANSFERASE 94 IU/L (21-72); ALBUMIN 3.5 g/dL (3.5-5.0); ALKALINE PHOSPHATASE 81 IU/L (38-126); ANION GAP 11 mEq/L (8-16); ASPARTATE AMINOTRANSFERASE 118 IU/L (17-59); BILIRUBIN,TOTAL 2.4 mg/dL (0.1-1.4); CALCIUM 9.3 mg/dL (8.5-10.4); CARBON DIOXIDE 20 mEq/l (22-31); CHLORIDE 106 mEq/L (97-110); CREATININE 0.7 mg/dL (0.7-1.3); GLOMERULAR FILTRATION RATE > 60; GLUCOSE 104 mg/dL (70-100); MAGNESIUM 1.7 mg/dL (1.6-2.3); POTASSIUM 4.1 mEq/L (3.5-5.2); SODIUM 137 mEq/L (134-144); TOTAL PROTEIN 7.6 g/dL (6.3-8.2)
[2017-01-11 05:51] LABS: BILIRUBIN-CONJUGATED 1.3 mg/dL (0.0-0.5); BILIRUBIN-UNCONJUGATED 1.1 mg/dL (0.0-1.1)
[2017-01-11 06:44] LABS: PLATELET ESTIMATE DECREASED (ADEQ)
[2017-01-11] MEDS: AMLODIPINE BESYLATE 5/BENAZEPRIL 10MG 1 EACH CAP PO SCH (08:11)
[2017-01-11] MEDS: PANTOPRAZOLE SODIUM 40 MG TAB PO SCH (08:12)
[2017-01-11] MEDS: THIAMINE HCL 100 MG TAB PO SCH (08:12)
[2017-01-11] MEDS ORDERED: MAGNESIUM SULF 1 GM/DEXTROSE 100 ML IV ONE (08:42)
[2017-01-11] MEDS: chlordiazePOXIDE 25 MG CAP PO PRN (09:58)
--- NOTE | 2017-01-11 10:29 | HOSPPROG ---
Hospitalist Progress Note Assessment/Plan: 56 yo m w alcoholism, thrombocytopenia admitted w severe alcohol withdrawal withdrawal: CIWA 9 this am on precedex. This was disconnected and pt up in wheelchair, seems to have turned the corner. Discussed with pulm, care team. -dc precedex -schedule librium at 50 mg TID -cont prn po/iv ativan thrombocytopenia: presumably 2/2 to alcohol, although cannot rule out ITP, good response to transfusion, plts up to 46. -cont to follow htn: amlodipine keep sbp <180 w low plts prn labetalol hypomagnesemia: replete proph: scd's dispo: transfer to med surg Subjective: Pt up in chair, still confused, but answers questions and follows commands. Denies pain. Still a bit tremulous. No CP or SOB. No fevers. Objective: Vital Signs Temp Pulse Resp BP Pulse Ox 36.4 C 79 13 149/91 H 93 01/11/17 08:00 01/11/17 08:00 01/11/17 08:00 01/11/17 08:11 01/11/17 08:00 Laboratory Results 01/11/17 05:10 01/11/17 05:10 01/10/17 01/11/17 01/12/17 05:59 05:59 05:59 Intake Total 4221 4372 Output Total 4400 1876 350 Balance -179 2496 -350 PT 13.9 SEC (12.0-15.0) 01/08/17 05:45 INR 1.08 (0.83-1.16) 01/08/17 05:45 - Physical Exam Constitutional: no apparent distress Eyes: PERRL Ears, Nose, Mouth, Throat: moist mucous membranes Cardiovascular: regular rate and rhythym Respiratory: no respiratory distress, clear to auscultation Gastrointestinal: normoactive bowel sounds, soft, non-tender abdomen Skin: warm Musculoskeletal: full muscle strength Neurologic: other (+tremor, no asterixis) Psychiatric: encephalopathic ICD10 Worksheet Patient Problems: Problems Problem Status Onset Lactic acidosis Acute Tremors of nervous system Acute Withdrawal syndrome Acute
[2017-01-11] MEDS: NICOTINE 14 MG/24 HR PATCH TD SCH (11:23)
--- NOTE | 2017-01-11 13:54 | PDINTPN ---
[employer] Progress Note Assessment/Plan: Assessment: EtOH withdrawal: CIWA <10 this morning, on scheduled benzos, Clonidine, PRN Haldol. Thrombocytopenia: Still quite low but continues to improve. Hypertension: Still with episodic HTN. Plan: Haldol added for hallucinations, but none given for almost 24 hours. Continue Clonidine for HTN/agitation. Continue benzos, change to PO, with scheduled Librium; melatonin hs. Follow platelets. Tx to M/S 01/11/17 13:55 01/11/17 13:56 Subjective: Feels better, more oriented. No hallucinations. Appetite returning. Slept better , but still somewhat restless. Objective: Vital Signs Temp Pulse Resp BP Pulse Ox 36.4 C 85 20 110/65 100 01/11/17 12:00 01/11/17 12:00 01/11/17 12:00 01/11/17 12:00 01/11/17 12:00 Laboratory Results 01/11/17 05:10 01/11/17 05:10 01/10/17 01/11/17 01/12/17 05:59 05:59 05:59 Intake Total 4221 4372 Output Total 4400 1876 350 Balance -179 2496 -350 PT 13.9 SEC (12.0-15.0) 01/08/17 05:45 INR 1.08 (0.83-1.16) 01/08/17 05:45 Physical Exam - Physical Exam General Appearance: alert, no apparent distress EENT: normal ENT inspection Neck: normal inspection Respiratory: normal breath sounds Cardiac/Chest: regular rate, rhythm, No edema Abdomen: normal bowel sounds, non-tender, soft Skin: normal color, warm/dry Extremities: other (firmness/cord around forearm IV site.) Neuro/Psych: alert, other (tremor), No oriented x 3 (x2) ICD10 Worksheet Patient Problems: Problems Problem Status Onset Lactic acidosis Acute Tremors of nervous system Acute Withdrawal syndrome Acute
[2017-01-11] MEDS ORDERED: hydrALAZINE 25 MG TAB PO PRN (14:43)
[2017-01-11] MEDS: chlordiazePOXIDE 25 MG CAP PO SCH ×2 (15:47→20:55)
[2017-01-11 18:39] LABS: POTASSIUM 3.6 mEq/L (3.5-5.2)
[2017-01-11] MEDS: MELATONIN 3 MG TAB PO SCH (21:45)
[2017-01-11] MEDS ORDERED: POTASSIUM CL 10 MEQ TAB PO ONE (21:50)
[2017-01-12 05:57] LABS: IONIZED CALCIUM 1.17 MMOL/L (1.12-1.30)
[2017-01-12] MEDS: LEVOTHYROXINE 25 MCG TAB PO SCH (06:25)
[2017-01-12 06:26] LABS: MAGNESIUM 1.7 mg/dL (1.6-2.3); POTASSIUM 3.9 mEq/L (3.5-5.2)
[2017-01-12] MEDS: LORazepam 1 MG TAB PO PRN ×3 (06:27→21:47)
[2017-01-12] MEDS ORDERED: POTASSIUM CL 10 MEQ TAB PO ONE (08:37)
[2017-01-12] MEDS ORDERED: MAGNESIUM SULF 1 GM/DEXTROSE 100 ML IV ONE (08:38)
[2017-01-12] MEDS: AMLODIPINE BESYLATE 5/BENAZEPRIL 10MG 1 EACH CAP PO SCH (08:55)
[2017-01-12] MEDS: PANTOPRAZOLE SODIUM 40 MG TAB PO SCH (08:55)
[2017-01-12] MEDS: chlordiazePOXIDE 25 MG CAP PO SCH ×3 (08:56→19:46)
[2017-01-12] MEDS: THIAMINE HCL 100 MG TAB PO SCH (08:56)
[2017-01-12] MEDS: NICOTINE 14 MG/24 HR PATCH TD SCH (09:00)
--- NOTE | 2017-01-12 13:51 | HOSPPROG ---
Hospitalist Progress Note Assessment/Plan: 56 yo m w alcoholism, thrombocytopenia admitted w severe alcohol withdrawal alcohol withdrawal: still quite tremulous and very unstable on his feet -cont scheduled librium -cont prn po/iv ativan gait instability - trial wernicke dose thiamine, cont PT/OT thrombocytopenia: presumably 2/2 to alcohol, although cannot rule out ITP, good response to transfusion, plts up to 61. -cont to follow htn: amlodipine, clonidine keep sbp <180 w low plts prn hydralazine hypomagnesemia: replete proph: scd's dispo: cont inpt, PT/OT, suspect he may need rehab Subjective: Pt still very unstable and tremulous. Up in chair. Still a bit confused. No fevers/chills. Requires walker for ambulation. Impulsive. Objective: Vital Signs Temp Pulse Resp BP Pulse Ox 36.9 C 21 L 21 H 156/117 H 99 01/12/17 07:44 01/12/17 07:44 01/12/17 07:44 01/12/17 08:55 01/12/17 07:44 Laboratory Results 01/12/17 05:49 01/12/17 05:49 01/11/17 01/12/17 01/13/17 05:59 05:59 05:59 Intake Total 4372 665 205 Output Total 1876 350 200 Balance 2496 315 5 PT 13.9 SEC (12.0-15.0) 01/08/17 05:45 INR 1.08 (0.83-1.16) 01/08/17 05:45 - Physical Exam Constitutional: no apparent distress Eyes: PERRL Ears, Nose, Mouth, Throat: moist mucous membranes Cardiovascular: regular rate and rhythym Respiratory: no respiratory distress Gastrointestinal: normoactive bowel sounds Skin: warm Musculoskeletal: full muscle strength Neurologic: AAOx3, other (+tremor, gait instability) Psychiatric: encephalopathic, poor insight, poor judgement ICD10 Worksheet Patient Problems: Problems Problem Status Onset Lactic acidosis Acute Tremors of nervous system Acute Withdrawal syndrome Acute
--- NOTE | 2017-01-12 14:57 | ASMTCMCOM ---
CM Note CM Note Notes: Patient is still very unstable and tremulous d/t alcohol withdrawal. He has been more lucid and conversant (although needs frequent redirection) today and has been part of conversations with his , Manager Spring and Behavioral Health RN. Yesterday, I provided [facility]on [facility] Co-Dependency group information to patient's Vanessa. Today, I was unable to meet with her, but she (and patient) did meet with Manager Springtisha Herrera and RN Karissa. See their notes in "Notes" section. PT is recommending SNF rehab, which we will need to discuss with patient's . This could be tricky since they live in [place] and patient is currently too ill to travel. CM will follow. Date Signed: 01/12/2017 02:56 PM Electronically Signed By:Kailey Lobato RN
[2017-01-12] MEDS: THIAMINE HCL 500 MG in NS 100 ML IV SCH ×2 (15:27→22:09)
[2017-01-12] MEDS: LORazepam 2 MG/ML INJ IVP PRN ×2 (19:21→23:48)
[2017-01-12] MEDS: HALOPERIDOL LACT 5 MG/ML INJ IVP PRN (19:46)
[2017-01-12] MEDS: MELATONIN 3 MG TAB PO SCH (21:48)
[2017-01-13] MEDS ORDERED: LORazepam 2 MG/ML INJ IVP SCH (03:00)
[2017-01-13] MEDS: LORazepam 2 MG/ML INJ IVP PRN (03:38)
[2017-01-13] MEDS: THIAMINE HCL 500 MG in NS 100 ML IV SCH ×3 (04:34→21:45)
[2017-01-13] MEDS: LEVOTHYROXINE 25 MCG TAB PO SCH (04:38)
[2017-01-13 04:51] LABS: IONIZED CALCIUM 1.14 MMOL/L (1.12-1.30)
[2017-01-13] MEDS: HALOPERIDOL LACT 5 MG/ML INJ IVP PRN (05:05)
[2017-01-13] MEDS: NICOTINE 14 MG/24 HR PATCH TD SCH (09:16)
[2017-01-13] MEDS: PANTOPRAZOLE SODIUM 40 MG TAB PO SCH ×2 (09:17→09:26)
[2017-01-13] MEDS: chlordiazePOXIDE 25 MG CAP PO SCH ×3 (09:17→21:45)
[2017-01-13] MEDS: AMLODIPINE BESYLATE 5/BENAZEPRIL 10MG 1 EACH CAP PO SCH (09:24)
[2017-01-13] MEDS ORDERED: NS 1,000 ML IV ONE (13:13)
--- NOTE | 2017-01-13 13:25 | HOSPPROG ---
Hospitalist Progress Note Assessment/Plan: 56 yo m w alcoholism, thrombocytopenia admitted w severe alcohol withdrawal alcohol withdrawal: still quite tremulous and very unstable on his feet -cont scheduled librium -cont prn po/iv ativan gait instability - trial wernicke dose thiamine, cont PT/OT -check ammonia thrombocytopenia: presumably 2/2 to alcohol, although cannot rule out ITP, good response to transfusion, plts up to 76 -cont to follow htn: BP low, suspect clonidine is culprit, will dc hypomagnesemia: replete tachycardia: ?volume depletion, still some mild w/d. -NS bolus elevated LFT's - undoubtedly alcohol induced liver dz -follow proph: scd's dispo: cont inpt, PT/OT, planning for rehab, will d/c CM Subjective: Pt doing a little better everyday. Still with mild tremor and unstable on his feet. less impulsive today. No fevers. No pain, no N/V/D. HR into 140s with ambulation per RN. Objective: Vital Signs Temp Pulse Resp BP Pulse Ox 36.6 C 94 12 96/64 L 96 01/13/17 12:26 01/13/17 12:55 01/13/17 12:26 01/13/17 12:55 01/13/17 12:26 Laboratory Results 01/13/17 04:35 01/12/17 05:49 01/12/17 01/13/17 01/14/17 05:59 05:59 05:59 Intake Total 665 1205 Output Total 350 200 Balance 315 1005 PT 13.9 SEC (12.0-15.0) 01/08/17 05:45 INR 1.08 (0.83-1.16) 01/08/17 05:45 - Physical Exam Constitutional: no apparent distress Eyes: PERRL Ears, Nose, Mouth, Throat: moist mucous membranes Cardiovascular: regular rate and rhythym Respiratory: no respiratory distress Gastrointestinal: normoactive bowel sounds, soft, non-tender abdomen Skin: warm Musculoskeletal: generalized weakness Neurologic: AAOx3, other (mild tremor) Psychiatric: interacting appropriately ICD10 Worksheet Patient Problems: Problems Problem Status Onset Lactic acidosis Acute Tremors of nervous system Acute Withdrawal syndrome Acute
[2017-01-13] MEDS ORDERED: ENOXAPARIN 40 MG/0.4 ML SYR SC SCH (13:45)
[2017-01-13 14:23] LABS: ALANINE AMINOTRANSFERASE 184 IU/L (21-72); ALKALINE PHOSPHATASE 96 IU/L (38-126); ANION GAP 11 mEq/L (8-16); ASPARTATE AMINOTRANSFERASE 231 IU/L (17-59); BILIRUBIN,TOTAL 1.9 mg/dL (0.1-1.4); CALCIUM 9.5 mg/dL (8.5-10.4); CARBON DIOXIDE 24 mEq/l (22-31); CHLORIDE 102 mEq/L (97-110); CREATININE 0.8 mg/dL (0.7-1.3); GLOMERULAR FILTRATION RATE > 60; GLUCOSE 92 mg/dL (70-100); POTASSIUM 4.1 mEq/L (3.5-5.2); SODIUM 137 mEq/L (134-144); TOTAL PROTEIN 8.3 g/dL (6.3-8.2)
--- NOTE | 2017-01-13 17:13 | ASMTCMCOM ---
CM Note CM Note Notes: Pt will need SNF at [place]. Spoke with pt's Vanessa by phone ([phone]). is in the area but not at the hospital. would like to tour area facilities in the morning. Pt has [employer] insurance. Told I would find out which SNF's take [employer] and leave a list with addresses in pt's room. So far, [facility] and [facility]. [facility] [place] has not called back. Pt's also asked to meet with C/N in AM to discuss details of SNF and what insurance covers. C/M will f/u with pt's in the AM. Also received text from to call pt's home health care case manager at [facility]. LM at [phone], Option 1 then ext [phone]. Date Signed: 01/13/2017 05:12 PM Electronically Signed By:Sue Roman LCSW
[2017-01-13] MEDS: MELATONIN 3 MG TAB PO SCH (21:44)
[2017-01-14 04:55] VITALS: PULSE 87
[2017-01-14] MEDS: LEVOTHYROXINE 25 MCG TAB PO SCH (07:38)
[2017-01-14] MEDS ORDERED: MAGNESIUM SULF 1 GM/DEXTROSE 100 ML IV ONE (07:44)
[2017-01-14] MEDS: PANTOPRAZOLE SODIUM 40 MG TAB PO SCH (08:37)
[2017-01-14] MEDS: chlordiazePOXIDE 25 MG CAP PO SCH ×3 (08:37→17:02)
[2017-01-14] MEDS: THIAMINE HCL 500 MG in NS 100 ML IV SCH ×2 (08:38→14:34)
[2017-01-14 12:57] VITALS: BP 112/79; RESP 18; TEMP 98.1; O2SAT 95
--- NOTE | 2017-01-14 15:47 | PDIAF ---
- Diagnosis Diagnosis: Alcohol withdrawal, deconditioning Code Status: Full Code - Medication Management Discharge Medications: Medications to Continue on Transfer Amlodipine Besylate/Benazepril [Amlodipine-Benazepril 5-10 mg] 1 each PO DAILY 01/07/17 [Last Taken Unknown] Levothyroxine [Synthroid 25 mcg (*)] 25 mcg PO DAILY06 01/07/17 [Last Taken Unknown] Folic Acid [Folic Acid 1 MG (*)] 1 mg PO DAILY #90 tab 01/14/17 [Last Taken Unknown] Multivit with Iron-Minerals [Compete] 1 each PO DAILY #90 tablet 01/14/17 [Last Taken Unknown] Nicotine [Nicoderm Cq 14 mg (*)] 14 mg TD DAILY #10 patch 01/14/17 [Last Taken Unknown] Pantoprazole Sodium [Protonix 40mg (*)] 40 mg PO DAILY #30 tab 01/14/17 [Last Taken Unknown] Thiamine HCl 100 mg PO DAILY #30 tablet 01/14/17 [Last Taken Unknown] chlordiazePOXIDE [Librium 25 mg (*)] 25 mg PO BID #8 cap 01/14/17 [Last Taken Unknown] Discharge Medications: Refer to the Discharge Home Medication list for PRN reason. PICC Care - Routine: N/A - Orders Services needed: Registered Nurse, Physical Therapy, Occupational Therapy Diet Recommendation: no restrictions on diet Diet Texture: Regular Texture Diet, Thin Liquids, Meds Whole w/Liquids - Follow Up Care Current Providers and Referrals: Patient,NotPresent [Primary Care Provider] -
[2017-01-14] MEDS: NICOTINE 14 MG/24 HR PATCH TD SCH (16:11)
--- NOTE | 2017-01-14 16:23 | ASMTCMCOM ---
CM Note CM Note Notes: D/w MD, final orders faxed. [facility] notified, patient will be picked up at 5pm, RN to call report. Date Signed: 01/14/2017 04:22 PM Electronically Signed By:Karissa Zhang RN
--- NOTE | 2017-01-14 20:57 | GDS ---
[f rep st] DISCHARGE SUMMARY DISCHARGE DIAGNOSES: 1. Severe alcohol withdrawal. 2. Gait instability. 3. Thrombocytopenia secondary to alcohol. 4. Hypertension, improved. 5. 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 CONSULTANTS: Dr. Alfonzo Cotton, Pulmonology. IMAGING STUDIES/PROCEDURES: 1. Head CT January 07, 2017, showed no acute intracranial abnormality. 2. Right upper extremity venous ultrasound showed superficial thrombophlebitis without deep venous t hrombosis. 3. Abdominal ultrasound January 07, showed increased echogenicity of the liver, possibly secondary to fatty infiltration. No evidence of cholelithiasis or cholecystitis. HISTORY: For details, please see the history and physical dated January 07, 2017. In brief, the bernard ent is a 56-year-old male who is visiting [place] from [place], [place] for parents weekend at the [employer], where his son is a student. He apparently had been drinking heavily at home, but was hiding it from his family. Since arriving to [place], he had not been drinking his usual quanti ties and thus developed alcohol withdrawal symptoms, presenting to the Emergency Department with trem or. He was admitted to the hospital for further management. HOSPITAL COURSE: The patient admitted to the Intensive Care Unit, given the severity of his withdraw al on arrival. He was placed on CIWA protocol, received p.r.n. benzodiazepines, and did require Prec edex drip for a brief period of time. He was weaned off the Precedex and has since been slowly taper ing off scheduled Librium. His withdrawal symptoms have significantly improved. However, he continu es to demonstrate gait instability, and will require [facility] for rehab based on our therapy r ecommendations. He did receive several days of high-dose IV thiamine for the possibility of Wernicke 's syndrome. His LFTs were elevated, likely secondary to alcoholic liver disease. He had a normal a mmonia level. He is also noted to have thrombocytopenia secondary to alcohol. He did not require pl atelet transfusion. His platelets have slowly increased up to 76 on the day of discharge, from a low of 14,000 on arrival. He had no evidence of bleeding throughout the hospitalization. He did have s ome elevated blood pressures during his withdrawal phase, though that seems to have resolved, and at the time of discharge his blood pressure was 112/79. I have discontinued his outpatient antihyperten sive, amlodipine/benazepril, given his normotensive, if not mildly hypotensive, state over the past 2 days prior to discharge, now that he is out of alcohol withdrawal and is no longer drinking. Should his blood pressure continue to rise, this can be resumed, though abstinence from alcohol will likely help prevent ongoing hypertension. DISPOSITION: The patient is discharged to a [facility] facility in stable condition. DISCHARGE MEDICATIONS: Please see [facility] for completed outpatient medication list. Includes: 1. Librium 25 mg p.o. t.i.d. for 1 more day, then 25 mg p.o. b.i.d. for 2 more days, then off. 2. Folic acid 1 mg p.o. daily. 3. Multivitamin 1 p.o. daily. 4. Thiamin 100 mg p.o. daily. 5. Protonix 40 mg p.o. daily. 6. NicoDerm patch 14 mg, #10. FOLLOWUP: The patient is to follow up with primary care upon returning to [place], [place] after he com pletes his course of rehab. /[id number]/MODL
[2017-01-17] MEDS ORDERED: LORazepam 2 MG/ML INJ IVP SCH (03:00)
== END 2017-01-14 17:00 | DRG 897 ==
LOC: F2N 16:29 → OBSVTOIN 16:59 → F2N 01-11 19:16 → F1N 01-12 18:19
PROVIDERS: ADMIT Internal Medicine; ATTEND Internal Medicine
PROC: 30233R1 Transfusion of Nonautologous Platelets into Peripheral Vein, Percutaneous Approach (ICD-10-PCS; principal; 2017-01-08)
DX: F10.239 Alcohol dependence with withdrawal, unspecified (principal); D69.59 Other secondary thrombocytopenia; I10 Essential (primary) hypertension; E03.9 Hypothyroidism, unspecified; E83.42 Hypomagnesemia; I80.8 Phlebitis and thrombophlebitis of other sites
CPT/HCPCS: 80305; 82947-QW; 84481-90; 92507-GN; 92523-GN; 92526-GN; 92610-GN; 96374; 97110-GP; 97116-GP; 97163-GP; 97166-GO; 97530-GP; 97535-GO; G0472; G0480; J0360; J2060; J2405; J3411; J3475; J3490; P9035